=== PATIENT | female | born 1960 | race Caucasian/White ===

== ENCOUNTER 2021-11-04 14:21 | Observation (INO) | payer OTHER, MEDICAID, SELFPAY ==
[2021-11-04] VITALS (19 sets, daily range): BP systolic 116–180; BP diastolic 63–98; PULSE 81–106; RESP 16–40; TEMP 35.9–36.4; O2SAT 94–99; BMI 41.1; BMI 41.5
--- NOTE | 2021-11-04 14:33 | DI.RAD.S_ITS ---
PROCEDURE: XR CHEST 1V INDICATIONS: chest pain TECHNIQUE: One view of the chest was acquired. COMPARISON: None. FINDINGS: Surgical changes and devices: None. Lungs and pleura: Lungs are clear. No pleural effusions or pneumothorax. Mediastinum: Mediastinal contours appear normal. Heart size is normal. Bones and chest wall: No suspicious bony lesions. Overlying soft tissues appear unremarkable. IMPRESSION: No acute cardiopulmonary pathology. Dictated by: Abraham Llanos M.D. on 11/04/2021 at 15:33 Approved by: Abraham Llanos M.D. on 11/04/2021 at 15:33
[2021-11-04 15:05] LABS: Prothrombin Time 11.3 SECONDS (10.1-12.7)
[2021-11-04 15:06] LABS: Add Manual Diff / Slide Review NO; Basophils Absolute Auto 100 /uL (0-100); Basophils Percent Auto 1.1 % (0-2); Eosinophils Absolute Auto 100 /uL (0-450); Eosinophils Percent Auto 1.5 % (2-4); Hematocrit 49.7 % (36-46); Hemoglobin 16.7 g/dL (12.0-16.0); Lymphocytes Absolute Auto 2400 /uL (1100-4500); Lymphocytes Percent Auto 34.4 % (25-40); Mean Corpuscular HGB Conc 33.7 % (30-36); Mean Corpuscular Hemoglobin 29.3 PG (26-34); Mean Corpuscular Volume 86.9 fL (80-100); Monocytes Absolute Auto 500 /uL (0-900); Monocytes Percent Auto 7.6 % (3-14); Neutrophils Absolute Auto 3800 /uL (1500-7000); Neutrophils Percent Auto 55.4 % (50-75); Platelet Count 179 X10^3/uL (150-400); Red Blood Cell Count 5.72 X10^6/uL (4.0-5.2); Red Cell Distribution Width 13.7 % (11.6-14.8); White Blood Cell Count 6.9 X10^3/uL (4.5-11.0)
[2021-11-04 15:07] LABS: PTT Partial Thromboplastin Tim 31 SECONDS (26.4-36.2)
[2021-11-04 15:10] LABS: Alanine Aminotransferase 48 IU/L (<35); Albumin 4.8 g/dL (3.5-5.0); Albumin Globulin Ratio 1.5 (1.0-2.8); Alkaline Phosphatase 60 U/L (38-126); Aspartate Aminotransferase 55 IU/L (14-36); Bilirubin Total 0.7 mg/dL (0.2-1.3); Blood Urea Nitrogen 13 mg/dL (7-17); Calcium 9.9 mg/dL (8.4-10.2); Carbon Dioxide 23 mmol/L (22-32); Chloride 104 mmol/L (98-107); Creatine Kinase 54 U/L (30-135); Estimated Glomerular Filt Rate > 60.0 mL/min (>60); Globulin 3.2 g/dL (1.7-4.1); Glucose 194 mg/dL (80-110); HEMOLYSIS 27 (0-50); Lipase 260 U/L (23-300); Magnesium 1.7 mg/dL (1.6-2.3); Potassium 4.4 mmol/L (3.4-5.1); Sodium 139 mmol/L (137-145)
[2021-11-04 15:21] LABS: Troponin I < 0.012 ng/mL (0.01-0.034)
--- NOTE | 2021-11-04 15:30 | ED_ITS ---
HPI - Syncope General Chief Complaint: Syncope Stated Complaint: Falling; possible seizure, RO stroke Time Seen by Provider: 11/04/21 14:55 Source: patient Mode of arrival: Ambulatory Limitations: no limitations History of Present Illness HPI narrative: The patient presents with syncope. She has diabetes, she states she has CAD with an MO in 2019. She has intermittent episodes of syncope since the MO. over the past week she has had 3 episodes of syncope. She passed out, and awoke 1 week ago. Three days ago she has syncopal episode with her family around her. There was suggestion of a left facial droop. She continues to have slight light touch deficit her left cheek, left arm and left leg. She does have bilateral lower leg numbness due to diabetic neuropathy, the left leg numbness he is of a new nature/pattern. The facial droop has resolved. She has no history of CVA. She was seen at about walk-in clinic and referred here. She passed out at triage. She quickly recovered. She has no headache, no visual changes, and no confusion. She has no focal numbness or weakness. She has no chest pain or dyspnea. She tells me she has had intermittent episodes of palpitations since her heart attack. She has no history of arrhythmia. She has a local manager inpatient. I have no access to her local records. I discussed her situation with her manager inpatient, Dr. Bojorquez, he tells me that she had normal arteries the cardiac catheterization. 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 Chills, cough or sore throat. She denies headache. There is no apparent injury in the collapse at triage. Related Data Home Medications Medication Instructions Recorded Confirmed alprazolam 0.5 mg tablet 0.5 mg PO DAILY PRN 11/04/21 11/04/21 empagliflozin 10 mg tablet 10 mg PO DAILY 11/04/21 11/04/21 (Jardiance) lisinopril 20 mg tablet 20 mg PO DAILY 11/04/21 11/04/21 metformin 500 mg tablet 1,000 mg PO DAILY 11/04/21 11/04/21 omeprazole 20 mg capsule,delayed 20 mg PO DAILY 11/04/21 11/04/21 release rosuvastatin 10 mg tablet 10 mg PO DAILY 11/04/21 11/04/21 Review of Systems Constitutional Constitutional: Denies chills, Denies fatigue, Denies fever(s), Reports frequent falls and Denies headache(s) Eyes Eyes: Denies exophthalmos and Denies change in vision ENT Ears, Nose, Mouth, and Throat: Reports as per HPI, Denies vertigo, Denies dizziness, Denies headache(s) and Denies sore throat Cardiovascular Cardiovascular: Denies chest pain, Reports leg edema, Reports palpitations and Denies dyspnea Respiratory Respiratory: Denies chest congestion, Denies cough and Denies dyspnea Gastrointestinal Gastrointestinal: Denies abdominal pain, Denies constipation and Denies cramping Genitourinary Genitourinary: Denies dysuria Comments: No urinary complaints. Musculoskeletal Musculoskeletal: Denies arthralgias and Denies back pain Comments: Bilateral lower extremity edema. Integumentary/Breasts Skin/Breast: Denies lesions and Denies rash Neurologic Neurologic: Denies confusion, Denies vertigo, Denies dizziness, Reports frequent falls, Denies headache(s) and Denies memory loss Psychiatric Psychiatric: Denies confusion and Denies memory loss Endocrine Endocrine: Denies fatigue and Reports palpitations Patient History Medical History (Updated 11/04/21 @ 19:13 by Jacques Alexis MD) Coronary artery disease Diabetic neuropathy Fibromyalgia IDDM (insulin dependent diabetes mellitus) Myocardial infarction Syncope Social History Smoking Status: Former smoker Smoking Status: Former smoker alcohol intake frequency: holidays/special occasions only Substance Use Type: marijuana Exam Initial Vital Signs Initial Vital Signs: Vital Signs Temperature 97.5 F L 11/04/21 14:30 Pulse Rate 97 H 11/04/21 14:30 Respiratory Rate 22 11/04/21 14:30 Blood Pressure 139/75 11/04/21 14:30 Pulse Oximetry 96 11/04/21 14:30 Const General: cooperative, healthy appearing and comfortable [facility] Head: normocephalic and atraumatic Mouth: oral mucosae normal Throat: posterior oropharynx normal Eyes General: appearance normal, both eyes and all related structures Pupils: PERRL EOM: EOM intact bilaterally Neck Neck: supple, No anterior neck swelling, No lymphadenopathy and No JVD Chest Chest: normal inspection of the chest Resp Effort & Inspection: normal respiratory effort Auscultation: clear to auscultation bilaterally Cardio Rate: regular rate Rhythm: regular rhythm Heart Sounds: S1 normal, S2 normal and no murmurs GI Inspection: normal to inspection Palpation: soft and No tender Auscultation: normal bowel sounds Back/Spine/Pelvis Back: normal to inspection and No CVA tenderness Thoracic/Lumbar Spine: thoracic and lumbar spine normal to inspection Skin General: no rashes or lesions noted Neuro General: patient alert, patient oriented x3 and no focal motor deficits Cranial Nerves: CN's II-XI intact bilaterally Speech: speech normal Motor: muscle tone normal throughout Sensory Exam: other (Light touch deficit on the left face, left arm and left leg.) Other: Detailed NIHSS testing was not done, however neurologic exam does reveal decreased light touch sensation to left cheek, left arm and left leg. Findings are consistent with a recent stroke. Extrem General: full ROM, no calf tenderness and pedal edema (Bilateral.) Psych Mental Status: mental status grossly normal Course Course Course Narrative: I discussed her situation with Dr. Bojorquez. He provided important information regarding her medical history. He concurs with my thought that she should be admitted on telemetry, have an echocardiogram, every discharge with at home telemetry. This was relayed to the hospitalist, Dr. Downing. An MRI of the brain is also discussed for concerns of CVA. Orders Ordered: ED Orders 11/04/21 14:33 XR chest 1V Stat EKG-12 Lead Stat 11/04/21 14:45 Complete Blood Count AUTO DIFF Stat Comprehensive Metabolic Panel Stat D Dimer Stat Lipase Stat Magnesium Stat Partial Thromboplastin Time Stat Prothrombin Time INR Stat Troponin & CK Cardiac Panel Stat 11/04/21 15:40 COVID19 -Nasal swab/Pre-Proc Stat 11/04/21 15:49 CT head/brain wo con Stat Acetaminophen (Acetaminophen 325 Mg Tablet) 650 mg PO Q6HR PRN PRN Reason: Fever/Mild Pain (1-3) Alprazolam (Alprazolam 0.5 Mg Tablet) 0.5 mg PO DAILY PRN PRN Reason: Anxiety Atorvastatin Calcium (Atorvastatin 20 Mg Tablet) 20 mg PO BEDTIME RICARDO Bisacodyl (Bisacodyl 5 Mg Tablet) 10 mg PO DAILY PRN PRN Reason: Constipation Calcium Carbonate (Calcium Carbonate 500 Mg Tab) 1,000 mg PO Q4HR PRN PRN Reason: Dyspepsia Dextrose (Dextrose 50 % In Water 25 Gm/50 Ml Syringe) 25 gm IV PRN PRN; Protocol PRN Reason: Hypoglycemia Enoxaparin Sodium (Enoxaparin 40 Mg/0.4 Ml Syringe) 40 mg SUBCUT DAILY [facility] Lactated Ringer's (Lactated Ringers) 1,000 mls @ 80 mls/hr IV CONT [facility] Insulin Human Lispro (Insulin Lispro 100 Unit/Ml 3ml Vial) 0 unit SUBCUT ACHS RICARDO; Protocol Lisinopril (Lisinopril 20 Mg Tablet) 20 mg PO DAILY [facility] Lorazepam (Lorazepam 2 Mg/Ml Inj) 1 mg IV Q6HR PRN PRN Reason: Anxiety Naloxone HCl (Naloxone 0.4 Mg/Ml Vial) 0.2 mg IV Q2MIN PRN PRN Reason: Opiate Reversal Nf - Empagliflozin ( Jardiance) 10 Mg Tablet 10 mg PO DAILY [facility] Ondansetron HCl (Ondansetron 4 Mg/2 Ml Inj) 4 mg IV Q8HR PRN PRN Reason: Nausea And Vomiting Pantoprazole Sodium (Pantoprazole Dr 20 Mg Tablet) 20 mg PO 0600 [facility] Discontinued Medications Aspirin (Aspirin 81 Mg Chew Tab) 324 mg PO NOW ONE Stop: 11/04/21 17:13 Last Admin: 11/04/21 17:25 Dose: 324 mg Documented by: ODALYS Vital Signs Vital signs: Vital Signs - 8 hr 11/04/21 14:30 11/04/21 14:42 11/04/21 14:43 Temperature 97.5 F L Pulse Rate 97 H 89 Respiratory Rate 22 Blood Pressure 139/75 160/90 H Pulse Oximetry 96 94 97 11/04/21 15:00 11/04/21 15:01 11/04/21 15:36 Temperature Pulse Rate 94 H 89 106 H Respiratory Rate 20 34 H Blood Pressure 136/63 Pulse Oximetry 95 95 96 11/04/21 15:39 11/04/21 16:07 11/04/21 16:08 Temperature Pulse Rate 104 H 101 H 100 H Respiratory Rate 17 Blood Pressure 180/91 H 157/64 H Pulse Oximetry 97 96 96 11/04/21 16:30 Temperature Pulse Rate 92 H Respiratory Rate 16 Blood Pressure Pulse Oximetry 94 MDM - Syncope Lab Data Result diagrams: 11/04/21 14:45 11/04/21 14:45 Labs: Lab Results 11/04/21 11/04/21 11/04/21 Range/Units 14:45 14:45 14:45 WBC 6.9 (4.5-11.0) X10^3/uL RBC 5.72 H (4.0-5.2) X10^6/uL Hgb 16.7 H (12.0-16.0) g/dL Hct 49.7 H (36-46) % MCV 86.9 (80-100) fL MCH 29.3 (26-34) PG MCHC 33.7 (30-36) % RDW 13.7 (11.6-14.8) % Plt Count 179 (150-400) X10^3/uL Neut % (Auto) 55.4 (50-75) % Lymph % (Auto) 34.4 (25-40) % [place] % (Auto) 7.6 (3-14) % Eos % (Auto) 1.5 L (2-4) % Baso % (Auto) 1.1 (0-2) % Neut # (Auto) 3800 (7966-2637) /uL Lymph # (Auto) 2400 (9809-5656) /uL [place] # (Auto) 500 (0-900) /uL Eos # (Auto) 100 (0-450) /uL Baso # (Auto) 100 (0-100) /uL PT 11.3 (10.1-12.7) SECONDS INR 1.0 (0.9-1.3) APTT 31 (26.4-36.2) SECONDS D-Dimer (<230) ng/mL Sodium 139 (137-145) mmol/L Potassium 4.4 (3.4-5.1) mmol/L Chloride 104 (98-107) mmol/L Carbon Dioxide 23 (22-32) mmol/L BUN 13 (7-17) mg/dL Creatinine 0.62 (0.52-1.04) mg/dL Estimated GFR > 60.0 (>60) mL/min BUN/Creatinine Ratio 21.0 (6-22) Glucose 194 H (80-110) mg/dL Calcium 9.9 (8.4-10.2) mg/dL Magnesium 1.7 (1.6-2.3) mg/dL Total Bilirubin 0.7 (0.2-1.3) mg/dL AST 55 H (14-36) IU/L ALT 48 H (<35) IU/L Alkaline Phosphatase 60 (38-126) U/L Total Creatine Kinase 54 (30-135) U/L CK-MB (CK-2) TNP CK-MB (CK-2) Rel Index TNP Troponin I < 0.012 (0.01-0.034) ng/mL Total Protein 8.0 (6.3-8.2) g/dL Albumin 4.8 (3.5-5.0) g/dL Globulin 3.2 (1.7-4.1) g/dL Albumin/Globulin Ratio 1.5 (1.0-2.8) Triglycerides (35-150) mg/dL Cholesterol (140-199) mg/dL LDL Cholesterol, Calc (<100) mg/dL HDL Cholesterol (40-60) mg/dL Lipase 260 (23-300) U/L Vitamin B12 (239-931) pg/mL TSH (0.47-4.68) uIU/mL SARS-CoV-2 (PCR) (Negative) 11/04/21 11/04/21 11/04/21 Range/Units 14:45 14:45 14:45 WBC (4.5-11.0) X10^3/uL RBC (4.0-5.2) X10^6/uL Hgb (12.0-16.0) g/dL Hct (36-46) % MCV (80-100) fL MCH (26-34) PG MCHC (30-36) % RDW (11.6-14.8) % Plt Count (150-400) X10^3/uL Neut % (Auto) (50-75) % Lymph % (Auto) (25-40) % [place] % (Auto) (3-14) % Eos % (Auto) (2-4) % Baso % (Auto) (0-2) % Neut # (Auto) (4986-3177) /uL Lymph # (Auto) (0920-4251) /uL [place] # (Auto) (0-900) /uL Eos # (Auto) (0-450) /uL Baso # (Auto) (0-100) /uL PT (10.1-12.7) SECONDS INR (0.9-1.3) APTT (26.4-36.2) SECONDS D-Dimer < 200 (<230) ng/mL Sodium (137-145) mmol/L Potassium (3.4-5.1) mmol/L Chloride (98-107) mmol/L Carbon Dioxide (22-32) mmol/L BUN (7-17) mg/dL Creatinine (0.52-1.04) mg/dL Estimated GFR (>60) mL/min BUN/Creatinine Ratio (6-22) Glucose (80-110) mg/dL Calcium (8.4-10.2) mg/dL Magnesium (1.6-2.3) mg/dL Total Bilirubin (0.2-1.3) mg/dL AST (14-36) IU/L ALT (<35) IU/L Alkaline Phosphatase (38-126) U/L Total Creatine Kinase (30-135) U/L CK-MB (CK-2) CK-MB (CK-2) Rel Index Troponin I (0.01-0.034) ng/mL Total Protein (6.3-8.2) g/dL Albumin (3.5-5.0) g/dL Globulin (1.7-4.1) g/dL Albumin/Globulin Ratio (1.0-2.8) Triglycerides 255 H (35-150) mg/dL Cholesterol 119 L (140-199) mg/dL LDL Cholesterol, Calc 19 (<100) mg/dL HDL Cholesterol 49 (40-60) mg/dL Lipase (23-300) U/L Vitamin B12 641 (239-931) pg/mL TSH 2.27 (0.47-4.68) uIU/mL SARS-CoV-2 (PCR) (Negative) 11/04/21 Range/Units 15:40 WBC (4.5-11.0) X10^3/uL RBC (4.0-5.2) X10^6/uL Hgb (12.0-16.0) g/dL Hct (36-46) % MCV (80-100) fL MCH (26-34) PG MCHC (30-36) % RDW (11.6-14.8) % Plt Count (150-400) X10^3/uL Neut % (Auto) (50-75) % Lymph % (Auto) (25-40) % [place] % (Auto) (3-14) % Eos % (Auto) (2-4) % Baso % (Auto) (0-2) % Neut # (Auto) (7324-3072) /uL Lymph # (Auto) (3003-3409) /uL [place] # (Auto) (0-900) /uL Eos # (Auto) (0-450) /uL Baso # (Auto) (0-100) /uL PT (10.1-12.7) SECONDS INR (0.9-1.3) APTT (26.4-36.2) SECONDS D-Dimer (<230) ng/mL Sodium (137-145) mmol/L Potassium (3.4-5.1) mmol/L Chloride (98-107) mmol/L Carbon Dioxide (22-32) mmol/L BUN (7-17) mg/dL Creatinine (0.52-1.04) mg/dL Estimated GFR (>60) mL/min BUN/Creatinine Ratio (6-22) Glucose (80-110) mg/dL Calcium (8.4-10.2) mg/dL Magnesium (1.6-2.3) mg/dL Total Bilirubin (0.2-1.3) mg/dL AST (14-36) IU/L ALT (<35) IU/L Alkaline Phosphatase (38-126) U/L Total Creatine Kinase (30-135) U/L CK-MB (CK-2) CK-MB (CK-2) Rel Index Troponin I (0.01-0.034) ng/mL Total Protein (6.3-8.2) g/dL Albumin (3.5-5.0) g/dL Globulin (1.7-4.1) g/dL Albumin/Globulin Ratio (1.0-2.8) Triglycerides (35-150) mg/dL Cholesterol (140-199) mg/dL LDL Cholesterol, Calc (<100) mg/dL HDL Cholesterol (40-60) mg/dL Lipase (23-300) U/L Vitamin B12 (239-931) pg/mL TSH (0.47-4.68) uIU/mL SARS-CoV-2 (PCR) Negative (Negative) Point of Care Testing Glucose POC 183 Imaging Data Chest x-ray: Radiologist's Impression: No acute findings CT scan - head: Radiologist's Impression: No acute findings ECG Data Attestation: I personally reviewed and interpreted this ECG as follows: (Normal sinus rhythm rate 93 beats per minute. LAD. Left axis deviation. No ectopy. No acute ST T wave changes.) Critical Care Time Critical Care Time Critical Care Time: Yes Total Critical Care Time: 50 Attestation: Time included evaluation of patient, review of EKG, radiology and lab data, and discussing the situation with the patient. Time included consultation with the physicians as noted above. Discharge Plan Departure Patient Disposition: Admitted as Observation Clinical Impression: Syncope, IDDM (insulin dependent diabetes mellitus), CVA (cerebral vascular accident) Admit Date/Time: 11/04/21 16:57 Admit Provider: Artie Ochoa
--- NOTE | 2021-11-04 15:49 | DI.CT.S_ITS ---
PROCEDURE: CT HEAD/BRAIN WO CON INDICATIONS: Syncope. Suspect recent CVA. TECHNIQUE: Noncontrast 4.5 mm thick angled axial sections acquired from the foramen magnum to the vertex, with coronal and sagittal reformats. For radiation dose reduction, the following was used: automated exposure control, adjustment of mA and/or kV according to patient size. COMPARISON: None. FINDINGS: Image quality: Excellent. CSF spaces: Basal cisterns are patent. No extra-axial fluid collections. Ventricles are normal in size and shape. Brain: No midline shift. No intracranial masses or hemorrhage. Silver-white matter interface is normal. Skull and face: Calvarium and visualized facial bones are intact, without suspicious lesions. Sinuses: Visualized sinuses and mastoids are clear. IMPRESSION: Unremarkable CT of the brain Approved by: Elias Meyer M.D. on 11/04/2021 at 15:10
[2021-11-04 15:56] LABS: D Dimer < 200 ng/mL (<230)
[2021-11-04 16:04] LABS: COVID19 -Nasal RAPID Negative (Negative)
--- NOTE | 2021-11-04 17:06 | DI.ECHO.S_ITS ---
[facility]---------+ [facility] +---------+ : : [address] : : : : [id number] : : : : Phone: [phone] Echocardiogram Report + :Name: SHERLY CH Study Date: 11/05/2021 Height: 65 in : :[facility] ReadingLocation: Weight: 243 lb : : Gender: Female BSA: 2.1 m2 : :: 1960 Age: 61 yrs BP: 128/73 mmHg: :Reason For Study: Syncope, stroke-like symptoms : :Ordering Physician: SARANYA, : :HARI Performed By: Thang Sellers : :Referring: HARI BEAVER : + Interpretation Summary The left ventricle is normal in size and wall thickness. The ejection fraction is estimated to be 60-65%. LVEF has not changed since prior study. There are no obvious focal wall motion abnormalities noted but poor endocardial definition reduces the sensitivity for the detection of such. Diastolic parameters suggest a relaxation abnormality of the left ventricle, consistent with probable normal filling pressures. The right ventricle is grossly normal size. The right ventricle is not well visualized. The right ventricular systolic function is normal. Pulmonary artery pressures cannot be estimated because of the lack of a measurable TR jet velocity. The left atrial size is normal. Right atrium not well visualized. The right atrium is borderline dilated. Bubble study with Valsalva on slides 73 and 74. No obvious sign of shunting There is no significant valvular heart disease. The aortic root is normal size. Procedure: A two-dimensional transthoracic echocardiogram with color flow and Doppler was performed. Comparison is made with the echocardiogram of 02/13/2019. Image quality fair but aquisition technically difficult due to patient's body habitus and inability to tolerate exam, especially apical and subcostal windows. The patient was in normal sinus rhythm during the exam. Left Ventricle: The left ventricle is normal in size and wall thickness. The ejection fraction is estimated to be 60-65%. There are no obvious focal wall motion abnormalities noted but poor endocardial definition reduces the sensitivity for the detection of such. Diastolic parameters suggest a relaxation abnormality of the left ventricle, consistent with probable normal filling pressures. Right Ventricle: The right ventricle is grossly normal size. The right ventricle is not well visualized. The right ventricular systolic function is normal. Atria: The left atrial size is normal. Right atrium not well visualized. The right atrium is borderline dilated. Bubble study with Valsalva on slides 73 and 74. No obvious sign of shunting. Mitral Valve: The mitral valve is normal. There is no mitral regurgitation noted. Aortic Valve: The aortic valve is trileaflet. The aortic valve opens well. No aortic regurgitation is present. Tricuspid Valve: The tricuspid valve is normal. There is trace tricuspid regurgitation. Pulmonary artery pressures cannot be estimated because of the lack of a measurable TR jet velocity. Pulmonic Valve: The pulmonic valve is normal in structure and function. There is no significant valvular heart disease. Great Vessels: The aortic root is normal size. The ascending aorta is normal in size. The aortic arch is normal in size. The inferior vena cava was not well visualized. Pericardium/ Pleura There is no pericardial effusion. There is an anterior echo-free space consistent with a fat pad. There is no pleural effusion. MMode/2D Measurements & Calculations LVIDd: 3.7 cm LVOT diam: 1.9 cm LVIDs: 2.6 cm Ao root diam: 3.0 cm FS: 31.5 % asc Aorta Diam: 3.0 cm IVSd: 0.72 cm Ao Arch Diam (Prox Trans): 2.8 cm LVPWd: 1.1 cm LV young. diameter/BSA (cm/m^2): 1.7 LV sys. diameter/BSA (cm/m^2): 1.2 LA A2 area: 16.6 cm2 RA long axis: 4.5 cm LA A4 area: 16.3 cm2 RA area: 16.6 cm2 LA length (vol): 4.8 cm RA vol: 52.3 ml LA vol: 47.5 ml RA : 24.3 ml/m2 LA vol index: 22.1 ml/m2 TAPSE: 2.4 cm Doppler Measurements & Calculations Ao V2 max: 131.4 cm/sec LVOT Max Patrick: 111.9 cm/sec Ao V2 mean: 85.0 cm/sec LV V1 max P.0 mmHg Ao max P.9 mmHg LV V1 VTI: 21.2 cm Ao mean P.2 mmHg MG(I,D): 2.4 cm2 Ao V2 VTI: 25.1 cm MG(V,D): 2.4 cm2 sev ratio: 0.85 MG indexed to BSA (cm^2/m^2): 1.1 MV E max patrick: 56.0 cm/sec PA V2 max: 84.2 cm/sec MV A max patrick: 66.0 cm/sec PA V2 mean: 68.2 cm/sec MV E/A: 0.85 PA mean P.9 mmHg Med Peak E' Patirck: 8.3 cm/sec PA pr(Accel): 34.5 mmHg E/E' med: 6.7 Lat Peak E' Patrick: 8.5 cm/sec E/E' lat: 6.6 E/e' average: 6.6 MV dec time: 0.22 sec SV(LVOT): 59.4 ml Reading Physician:02:59 PM
--- NOTE | 2021-11-04 17:08 | DI.MRI.S_ITS ---
PROCEDURE: MR HEAD/BRAIN WO CON INDICATIONS: WEAKNESS TO EXT; NUMBNESS TECHNIQUE: After completing the axial diffusion sequence, the patient was unable to continue due to claustrophobia, and the exam was terminated. COMPARISON: None. FINDINGS: Single diffusion sequence of the brain shows no evidence of infarct or gross mass lesion. IMPRESSION: Limited single sequence of the brain shows no evidence of acute infarct or large mass lesion. Consider follow-up MRI brain with oral sedation Approved by: Elias Meyer M.D. on 11/04/2021 at 17:15
--- NOTE | 2021-11-04 17:24 | PM.HP.1 ---
History of Present Illness History of Present Illness Chief complaint: Falling; possible seizure, RO stroke Narrative: THIS IS A 62-YEAR-OLD FEMALE WITH REPORTEDLY HISTORY OF PRIOR AL WHICH WAS SUPPOSEDLY DIAGNOSED IN 2019. HOWEVER PATIENT HAD A LEFT HEART CATHETERIZATION WHICH SHOWING CLEAN CORONARY REPORTEDLY. PATIENT PRESENTS TO THE HOSPITAL REPORTING THAT SHE HAS BEEN HAVING RECURRENT SYNCOPAL EPISODE. WITH THE LAST REPORTED BEING DURING TRIAGED TODAY. FOR THE LAST 2-3 WEEKS AGO, SHE REPORTED TO 2- 3 EPISODE OR SYNCOPE. SHE ALSO REPORTED CHEST PALPITATION WITH HER HEART A BEAT SHE IS A POOR HISTORIAN AND REPORTED MULTIPLE UNRELATED SYMPTOMS . PATIENT ALSO ENDORSES THAT SHE HAS BEEN HAVING SOME NUMBNESS TO LOWER EXTREMITIES WHICH SHE HAS DIFFERENT FROM HER USUAL DIABETIC NEUROPATHY. HER RIGHT SIDE BEING THE WORST IN THE ER HOWEVER HER VITAL SIGNS ARE FAIRLY STABLE. LABS IS SIGNIFICANT FOR APPEARS TO BE MILD HEMOCONCENTRATION SECONDARY TO INTRAVASCULAR FLUID DEPLETION WELL ELEVATED LIVER ENZYMES. A CT OF THE BRAIN WAS NEGATIVE A CHEST X-RAY NOT SHOW ANY ACUTE DISEASE. Patient History Medical History (Updated 11/04/21 @ 15:58 by Jacques Alexis MD) Coronary artery disease Diabetic neuropathy Fibromyalgia IDDM (insulin dependent diabetes mellitus) Myocardial infarction Syncope Family & Social History Safety & Behavioral: Feels Safe in Current Yes Environment Tobacco & Substance use: Smoking Status Former smoker alcohol intake frequency holiday/special occasion Substance Use Type marijuana Meds Home Medications and Allergies Home Medications Medication Instructions Recorded Confirmed Type alprazolam 0.5 mg tablet 0.5 mg PO DAILY PRN 11/04/21 11/04/21 History empagliflozin 10 mg tablet 10 mg PO DAILY 11/04/21 11/04/21 History (Jardiance) lisinopril 20 mg tablet 20 mg PO DAILY 11/04/21 11/04/21 History metformin 500 mg tablet 1,000 mg PO DAILY 11/04/21 11/04/21 History omeprazole 20 mg capsule,delayed 20 mg PO DAILY 11/04/21 11/04/21 History release rosuvastatin 10 mg tablet 10 mg PO DAILY 11/04/21 11/04/21 History Review of Systems Review of Systems Narrative: NEGATIVE UNLESS NOTED ABOVE IN HPI Exam Vital Signs (past 8 hours): - 11/04/21 14:30 11/04/21 14:42 11/04/21 14:43 Temperature 97.5 F L Pulse Rate 97 H 89 Respiratory Rate 22 Blood Pressure 139/75 160/90 H Pulse Oximetry 96 94 97 11/04/21 15:00 11/04/21 15:01 11/04/21 15:36 Temperature Pulse Rate 94 H 89 106 H Respiratory Rate 20 34 H Blood Pressure 136/63 Pulse Oximetry 95 95 96 11/04/21 15:39 11/04/21 16:07 11/04/21 16:08 Temperature Pulse Rate 104 H 101 H 100 H Respiratory Rate 17 Blood Pressure 180/91 H 157/64 H Pulse Oximetry 97 96 96 11/04/21 16:30 Temperature Pulse Rate 92 H Respiratory Rate 16 Blood Pressure Pulse Oximetry 94 Oxygen Delivery Method Room Air Narrative Exam Narrative: NO ACUTE DISTRESS. MORBIDLY OBESE VITAL SIGNS STABLE HEAD ATRAUMATIC NORMOCEPHALIC NECK : SUPPLE WITHOUT ADENOPATHY NO CAROTID BRUITS EYE: EOMI, PERRLA, NORMAL CONJUNCTIVA; NO JAUNDICE CHEST: REGULAR RATE. NO RUBS. PMI IS NON DISPLACED. NO MURMURS; NORMAL S1-S2 PULMONARY: DECREASED BS OVER THE BASES. MILD BIBASILAR CRACKLES NOTED; NO INCREASED DULLNESS TO PERCUSSION ABDOMEN: OBESE BUT SOFT. NONTENDER. NONDISTENDED. BOWEL SOUNDS ARE PRESENT IN ALL 4 QUADRANTS. NO MASS. EXTREMITIES: NO EDEMA.. NO CYANOSIS CLUBBING NOTED. NEURO: CRANIAL NERVES 2-12 GROSSLY INTACT. NO FOCAL NEUROLOGICAL DEFICIT NOTED. MSK: NORMAL RANGE OF MOTION FOR AGE. NO JOINT EFFUSION. SKIN: NORMAL FOR ETHNICITY; NO ECCHYMOSIS. NO LESION. GOOD TURGOR.; NO RASHES : NORMAL EXTERNAL GENITALIA. PSYCH : APPROPRIATE MOOD AND AFFECT. ALERT AWAKE ORIENTED X3 Objective Labs Result Diagrams: 11/04/21 14:45 11/04/21 14:45 Labs: Laboratory Results - last 24 hr 11/04/21 11/04/21 11/04/21 14:45 14:45 14:45 WBC 6.9 RBC 5.72 H Hgb 16.7 H Hct 49.7 H MCV 86.9 MCH 29.3 MCHC 33.7 RDW 13.7 Plt Count 179 Neut % (Auto) 55.4 Lymph % (Auto) 34.4 [place] % (Auto) 7.6 Eos % (Auto) 1.5 L Baso % (Auto) 1.1 Neut # (Auto) 3800 Lymph # (Auto) 2400 [place] # (Auto) 500 Eos # (Auto) 100 Baso # (Auto) 100 PT 11.3 INR 1.0 APTT 31 D-Dimer Sodium 139 Potassium 4.4 Chloride 104 Carbon Dioxide 23 BUN 13 Creatinine 0.62 Estimated GFR > 60.0 BUN/Creatinine Ratio 21.0 Glucose 194 H Calcium 9.9 Magnesium 1.7 Total Bilirubin 0.7 AST 55 H ALT 48 H Alkaline Phosphatase 60 Total Creatine Kinase 54 CK-MB (CK-2) TNP CK-MB (CK-2) Rel Index TNP Troponin I < 0.012 Total Protein 8.0 Albumin 4.8 Globulin 3.2 Albumin/Globulin Ratio 1.5 Lipase 260 SARS-CoV-2 (PCR) 11/04/21 11/04/21 14:45 15:40 WBC RBC Hgb Hct MCV MCH MCHC RDW Plt Count Neut % (Auto) Lymph % (Auto) [place] % (Auto) Eos % (Auto) Baso % (Auto) Neut # (Auto) Lymph # (Auto) [place] # (Auto) Eos # (Auto) Baso # (Auto) PT INR APTT D-Dimer < 200 Sodium Potassium Chloride Carbon Dioxide BUN Creatinine Estimated GFR BUN/Creatinine Ratio Glucose Calcium Magnesium Total Bilirubin AST ALT Alkaline Phosphatase Total Creatine Kinase CK-MB (CK-2) CK-MB (CK-2) Rel Index Troponin I Total Protein Albumin Globulin Albumin/Globulin Ratio Lipase SARS-CoV-2 (PCR) Negative Assessment & Plan Assessment & Plan narrative: PROBLEM LIST POSSIBLE SYNCOPE. CAUSE IS UNCLEAR POSSIBLE INTRAVASCULAR FLUID DEPLETION /DEHYDRATION DIABETES TYPE 2 MORBID OBESITY POSSIBLE ANXIETY FOR HISTORY ELEVATED LIVER ENZYMES. PATIENT IS ON STATIN LOWER EXTREMITY WEAKNESS. CAUSE IS UNCLEAR PLAN CHECK MRI BRAIN AND CERVICAL SPINE WILL ALSO CHECK LIPIDS RPR AND HOMOCYSTINE WILL CHECK AN ECHOCARDIOGRAM WELL CHECK VITAMIN B12 LEVEL WILL ORDER URINE DRUG SCREEN CHECK TSH Q.4 HOURS NEURO CHECK WILL BE ORDERED WELL FOR THE NEXT 24 HOURS PATIENT WILL BE EVALUATED BY PHYSICAL THERAPY AND OCCUPATIONAL THERAPY TEAMS WHILE IN-HOUSE ADDITIONAL MANAGEMENT AND DISCHARGE PER CLINICAL COURSE PER CLINICAL COURSE Time Spent With Patient Critical Care time: I spent a total of [] minutes of critical care time on this patient's care today; this time is exclusive of procedural time.
[2021-11-04] MEDS: ASPIRIN 81 MG CHEW TAB 324 MG PO (17:25)
[2021-11-04 17:50] LABS: Cholesterol 119 mg/dL (140-199); HDL Cholesterol 49 mg/dL (40-60); LDL Cholesterol Calculated 19 mg/dL (<100); Triglycerides 255 mg/dL (35-150)
[2021-11-04 18:21] LABS: TSH w/ Reflex to FT4 2.27 uIU/mL (0.47-4.68)
[2021-11-04 18:25] LABS: COVID19 - ADMIT (NP swab/PCR) Negative (Negative)
[2021-11-04 18:40] LABS: Vitamin B12 641 pg/mL (239-931)
[2021-11-04 19:54] LABS: Hemoglobin A1C% w Est Avg Glu 8.9 % (4.0-6.0)
[2021-11-04] MEDS: LACTATED RINGERS 1,000 ML 80 ML IV (20:14)
[2021-11-04] MEDS: ATORVASTATIN 20 MG TABLET PO (20:26)
[2021-11-04 20:35] LABS: Appearance Urine UA CLEAR; Bilirubin Urine UA NEGATIVE (NEGATIVE); Color Urine UA YELLOW; Glucose Urine UA 2+ g/dL (Negative); Ketones Urine UA 1+ (NEGATIVE); Leukocyte Esterase Urine UA NEGATIVE (NEGATIVE); Nitrite Urine UA NEGATIVE (Negative); Occult Blood Urine UA NEGATIVE (Negative); Protein Urine UA NEGATIVE (Negative); Urobilinogen Urine UA 0.2 E.U./dL (0.2)
[2021-11-04 20:41] LABS: Bacteria Urine None Seen; Culture Indicated Urine Cult Not Indicated; RBC Urine None Seen (0-5/HPF); Squamous Epithelial Cell Urine 5-10 /HPF (0-5/HPF); WBC Urine None Seen (0-5/HPF)
[2021-11-04 20:42] LABS: UR Morphine/Opiate cutoff 300 Negative (Negative); Ur Creatinine Normal (Normal); Ur Specific Gravity Normal (Normal); Urine Amphetamines Negative (Negative); Urine Barbiturates Negative (Negative); Urine Benzodiazepines Negative (Negative); Urine Cocaine Negative (Negative); Urine MDMA Negative (Negative); Urine Methadone Negative (Negative); Urine Methamphetamines Negative (Negative); Urine Oxycodone Negative (Negative); Urine Phencyclidine Negative (Negative); Urine Tetrahydrocannabinol Positive (Negative); Urine Tricyclic Antidepressant Negative (Negative); Urine pH Normal (Normal); pH Urine UA 5.5 (4.5-8.0)
[2021-11-04] MEDS: LORazepam 2 MG/ML INJ 1 MG IV (21:02)
[2021-11-04 21:03] LABS: Creatine Kinase 50 U/L (30-135)
[2021-11-04 21:09] LABS: Alanine Aminotransferase 47 IU/L (<35); Albumin 4.5 g/dL (3.5-5.0); Albumin Globulin Ratio 1.5 (1.0-2.8); Alkaline Phosphatase 56 U/L (38-126); Aspartate Aminotransferase 71 IU/L (14-36); BUN Creatinine Ratio 23.1 (6-22); Bilirubin Total 0.4 mg/dL (0.2-1.3); Blood Urea Nitrogen 15 mg/dL (7-17); Calcium 9.8 mg/dL (8.4-10.2); Carbon Dioxide 28 mmol/L (22-32); Chloride 104 mmol/L (98-107); Estimated Glomerular Filt Rate > 60.0 mL/min (>60); Glucose 160 mg/dL (80-110); HEMOLYSIS 29 (0-50); Potassium 4.2 mmol/L (3.4-5.1); Sodium 139 mmol/L (137-145); Total Protein 7.5 g/dL (6.3-8.2)
[2021-11-04 21:16] LABS: Troponin I < 0.012 ng/mL (0.01-0.034)
--- NOTE | 2021-11-04 21:49 | PC.ADMIT ---
Patient arrived to room 206 at shift change from ER per stretcher. Up to bathroom with 1 assist and then into bed. Is alert and oriented. Does state she is still feeling slightly dizzy. NIH = 4. Had slight left facial droop, and has chronic neuropathy in left arm/leg but states feels more numb than normal. Has difficulty making hand grasps due to osteoarthritis and has difficulty holding onto objects with left hand. Drift present in both left extremities. Breath sounds CTA with RA sat of 94%. HRR w/telemetry reading of SR w/BBB. Denied nausea. BT present and abdomen is soft. Denied dysuria, frequency or urgency with urination. Is able to move self in bed. Bilateral calf SCD's applied but requested the left one be removed as is exacerbating her neuropathy. Fall risk score is high and bed alarm is activated. During admission delonte complained to RNAbhijit, that she was having 8/10 left sided chest pain radiating into left arm. Described pain as heavy and burning. BP 162/98 with HR of 95 and tachypneic at 40. Placed on oxygen for comfort with sat of 99% on 2L/min per NC. Not diaphoretic. Chas IGNACIO, informed and orders received for EKG, lab work, NTG and Morphine but directed to first give dose of Ativan and if that didn't resolve the discomfort to proceed to giving NTG. After EKG was completed patient stated pain had subsided to 6/10 and after Ativan was given pain subsided to 4/10. BP at that time was 125/86 with HR of 82 and RR of 22. CBG checked and was 148. Patient appears to be asleep at this time. [address] Admission Note: The patient,Gabrielle Avilez,61 y/o, was given written information regarding hospital policies, unit procedures and contact persons. Patient's smoking status: Former smoker. Vital Signs - 8 hr 11/04/21 14:30 11/04/21 14:42 11/04/21 14:43 Temperature 97.5 F L Pulse Rate 97 H 89 Respiratory Rate 22 Blood Pressure 139/75 160/90 H Pulse Oximetry 96 94 97 11/04/21 15:00 11/04/21 15:01 11/04/21 15:36 Temperature Pulse Rate 94 H 89 106 H Respiratory Rate 20 34 H Blood Pressure 136/63 Pulse Oximetry 95 95 96 11/04/21 15:39 11/04/21 16:07 11/04/21 16:08 Temperature Pulse Rate 104 H 101 H 100 H Respiratory Rate 17 Blood Pressure 180/91 H 157/64 H Pulse Oximetry 97 96 96 11/04/21 16:30 11/04/21 17:00 11/04/21 17:16 Temperature Pulse Rate 92 H 96 H 87 Respiratory Rate 16 18 Blood Pressure 129/75 Pulse Oximetry 94 96 96 11/04/21 17:20 11/04/21 18:00 11/04/21 19:00 Temperature 97.6 F Pulse Rate 88 90 81 Respiratory Rate 18 20 Blood Pressure 116/63 118/70 128/73 Pulse Oximetry 95 96 94 11/04/21 20:50 11/04/21 21:00 11/04/21 21:12 Temperature Pulse Rate 95 H 82 Respiratory Rate 40 H 22 Blood Pressure 162/98 H 125/86 Pulse Oximetry 99 97
[2021-11-04 22:48] LABS: Troponin I < 0.012 ng/mL (0.01-0.034)
[2021-11-05 03:55] VITALS: BP 120/85; PULSE 69; RESP 18; TEMP 36; O2SAT 94
[2021-11-05] MEDS: LORazepam 2 MG/ML INJ 1 MG IV ×2 (04:43→11:47)
[2021-11-05] MEDS: PANTOPRAZOLE DR 20 MG TABLET PO (06:14)
[2021-11-05 06:58] LABS: Add Manual Diff / Slide Review NO; Basophils Absolute Auto 100 /uL (0-100); Basophils Percent Auto 1.2 % (0-2); Eosinophils Absolute Auto 100 /uL (0-450); Eosinophils Percent Auto 2.4 % (2-4); Hematocrit 43.4 % (36-46); Hemoglobin 14.6 g/dL (12.0-16.0); Lymphocytes Absolute Auto 2000 /uL (1100-4500); Lymphocytes Percent Auto 42.7 % (25-40); Mean Corpuscular HGB Conc 33.7 % (30-36); Mean Corpuscular Hemoglobin 29.2 PG (26-34); Mean Corpuscular Volume 86.7 fL (80-100); Monocytes Absolute Auto 400 /uL (0-900); Neutrophils Absolute Auto 2200 /uL (1500-7000); Neutrophils Percent Auto 45.7 % (50-75); Platelet Count 145 X10^3/uL (150-400); Red Blood Cell Count 5.01 X10^6/uL (4.0-5.2); Red Cell Distribution Width 13.8 % (11.6-14.8); White Blood Cell Count 4.8 X10^3/uL (4.5-11.0)
[2021-11-05 07:10] LABS: Alanine Aminotransferase 39 IU/L (<35); Albumin Globulin Ratio 1.6 (1.0-2.8); Alkaline Phosphatase 46 U/L (38-126); Aspartate Aminotransferase 40 IU/L (14-36); BUN Creatinine Ratio 21.9 (6-22); Bilirubin Total 0.5 mg/dL (0.2-1.3); Blood Urea Nitrogen 14 mg/dL (7-17); Calcium 9.1 mg/dL (8.4-10.2); Carbon Dioxide 30 mmol/L (22-32); Chloride 100 mmol/L (98-107); Estimated Glomerular Filt Rate > 60.0 mL/min (>60); Globulin 2.5 g/dL (1.7-4.1); Glucose 208 mg/dL (80-110); HEMOLYSIS < 15 (0-50); Sodium 137 mmol/L (137-145); Total Protein 6.5 g/dL (6.3-8.2)
[2021-11-05 07:20] LABS: Troponin I < 0.012 ng/mL (0.01-0.034)
--- NOTE | 2021-11-05 07:36 | PM.PN.1 ---
Subjective Subjective Date Patient Seen: 11/05/21 Interval history: She is seen in her room here today to follow-up her possible new seizure condition with syncope/lightheadedness. During today's physical therapy session while her orthostatic numbers were being checked she became aware that she was feeling fainter and so asked to sit down and then promptly passed out for several seconds. When she woke up again she was quite distraught and crying. She did not lose control of her bowels or bladder and she was not postictal. There were no observed seizures. I was present at the and of this process. She has undergone a stroke protocol MRI without any significant abnormality found. An echocardiogram has also been done with results pending. She tells me her symptoms in a very disorganized story fashion. She says she feels exhausted today. Her is sleeping on the bench in the room. She says she wants to go home today. Telemetry during this episode did not show any irregularity. Exam Vital Signs (past 8 hours): - 11/04/21 23:56 11/05/21 03:55 Temperature 96.7 F L 96.8 F L Pulse Rate 86 69 Respiratory Rate 18 18 Blood Pressure 123/82 120/85 Pulse Oximetry 95 94 Oxygen Delivery Method Nasal Cannula Oxygen Flow Rate 0 Narrative Exam Narrative: She is alert and oriented x3. She is distraught and distress. She tells her story in a disorganized fashion. Heart is regular rate and rhythm without murmur Lungs are clear to auscultation bilaterally Extremities have no ankle edema Neurological exam: Left foot movement is 2/5 and right foot movement is 5/5. She has weak pharmaceutical plant operator strength bilateral. She has diminished sensation on the left side of her face. Objective Labs Result Diagrams: 11/05/21 06:25 11/05/21 06:25 Labs: Laboratory Results - last 24 hr 11/04/21 11/04/21 11/04/21 14:45 14:45 14:45 WBC 6.9 RBC 5.72 H Hgb 16.7 H Hct 49.7 H MCV 86.9 MCH 29.3 MCHC 33.7 RDW 13.7 Plt Count 179 Neut % (Auto) 55.4 Lymph % (Auto) 34.4 [place] % (Auto) 7.6 Eos % (Auto) 1.5 L Baso % (Auto) 1.1 Neut # (Auto) 3800 Lymph # (Auto) 2400 [place] # (Auto) 500 Eos # (Auto) 100 Baso # (Auto) 100 PT 11.3 INR 1.0 APTT 31 D-Dimer Sodium 139 Potassium 4.4 Chloride 104 Carbon Dioxide 23 BUN 13 Creatinine 0.62 Estimated GFR > 60.0 BUN/Creatinine Ratio 21.0 Glucose 194 H Hemoglobin A1c Calcium 9.9 Phosphorus Magnesium 1.7 Total Bilirubin 0.7 AST 55 H ALT 48 H Alkaline Phosphatase 60 Total Creatine Kinase 54 CK-MB (CK-2) TNP CK-MB (CK-2) Rel Index TNP Troponin I < 0.012 Total Protein 8.0 Albumin 4.8 Globulin 3.2 Albumin/Globulin Ratio 1.5 Triglycerides Cholesterol LDL Cholesterol, Calc HDL Cholesterol Lipase 260 Vitamin B12 TSH Urine Color Urine Appearance Urine pH Ur Specific [place] Urine Protein Urine Glucose (UA) Urine Ketones Urine Occult Blood Urine Nitrate Urine Bilirubin Urine Urobilinogen Ur Leukocyte Esterase Urine RBC Urine WBC Ur Squamous Epith Cells Urine Bacteria Ur Culture Indicated? U Opiates 300ng/mL cut Ur Oxycodone Screen Urine Methadone Screen Ur Barbiturates Screen U Tricyclic Antidepress Ur Phencyclidine Scrn Ur Amphetamines Screen U Methamphetamines Scrn Ur MDMA Scrn (Ecstasy) U Benzodiazepines Scrn Urine Cocaine Screen U Marijuana (THC) Screen SARS-CoV-2 (PCR) 11/04/21 11/04/21 11/04/21 14:45 14:45 14:45 WBC RBC Hgb Hct MCV MCH MCHC RDW Plt Count Neut % (Auto) Lymph % (Auto) [place] % (Auto) Eos % (Auto) Baso % (Auto) Neut # (Auto) Lymph # (Auto) [place] # (Auto) Eos # (Auto) Baso # (Auto) PT INR APTT D-Dimer < 200 Sodium Potassium Chloride Carbon Dioxide BUN Creatinine Estimated GFR BUN/Creatinine Ratio Glucose Hemoglobin A1c Calcium Phosphorus Magnesium Total Bilirubin AST ALT Alkaline Phosphatase Total Creatine Kinase CK-MB (CK-2) CK-MB (CK-2) Rel Index Troponin I Total Protein Albumin Globulin Albumin/Globulin Ratio Triglycerides 255 H Cholesterol 119 L LDL Cholesterol, Calc 19 HDL Cholesterol 49 Lipase Vitamin B12 641 TSH 2.27 Urine Color Urine Appearance Urine pH Ur Specific [place] Urine Protein Urine Glucose (UA) Urine Ketones Urine Occult Blood Urine Nitrate Urine Bilirubin Urine Urobilinogen Ur Leukocyte Esterase Urine RBC Urine WBC Ur Squamous Epith Cells Urine Bacteria Ur Culture Indicated? U Opiates 300ng/mL cut Ur Oxycodone Screen Urine Methadone Screen Ur Barbiturates Screen U Tricyclic Antidepress Ur Phencyclidine Scrn Ur Amphetamines Screen U Methamphetamines Scrn Ur MDMA Scrn (Ecstasy) U Benzodiazepines Scrn Urine Cocaine Screen U Marijuana (THC) Screen SARS-CoV-2 (PCR) 11/04/21 11/04/21 11/04/21 15:40 17:17 19:15 WBC RBC Hgb Hct MCV MCH MCHC RDW Plt Count Neut % (Auto) Lymph % (Auto) [place] % (Auto) Eos % (Auto) Baso % (Auto) Neut # (Auto) Lymph # (Auto) [place] # (Auto) Eos # (Auto) Baso # (Auto) PT INR APTT D-Dimer Sodium Potassium Chloride Carbon Dioxide BUN Creatinine Estimated GFR BUN/Creatinine Ratio Glucose Hemoglobin A1c Calcium Phosphorus Magnesium Total Bilirubin AST ALT Alkaline Phosphatase Total Creatine Kinase CK-MB (CK-2) CK-MB (CK-2) Rel Index Troponin I Total Protein Albumin Globulin Albumin/Globulin Ratio Triglycerides Cholesterol LDL Cholesterol, Calc HDL Cholesterol Lipase Vitamin B12 TSH Urine Color Yellow Urine Appearance Clear Urine pH 5.5 Ur Specific [place] 1.020 Urine Protein Negative Urine Glucose (UA) 2+ H Urine Ketones 1+ H Urine Occult Blood Negative Urine Nitrate Negative Urine Bilirubin Negative Urine Urobilinogen 0.2 Ur Leukocyte Esterase Negative Urine RBC None seen Urine WBC None seen Ur Squamous Epith Cells 5-10 /hpf H Urine Bacteria None seen Ur Culture Indicated? Cult not indicated U Opiates 300ng/mL cut Ur Oxycodone Screen Urine Methadone Screen Ur Barbiturates Screen U Tricyclic Antidepress Ur Phencyclidine Scrn Ur Amphetamines Screen U Methamphetamines Scrn Ur MDMA Scrn (Ecstasy) U Benzodiazepines Scrn Urine Cocaine Screen U Marijuana (THC) Screen SARS-CoV-2 (PCR) Negative Negative 11/04/21 11/04/21 11/04/21 19:15 19:36 19:36 WBC RBC Hgb Hct MCV MCH MCHC RDW Plt Count Neut % (Auto) Lymph % (Auto) [place] % (Auto) Eos % (Auto) Baso % (Auto) Neut # (Auto) Lymph # (Auto) [place] # (Auto) Eos # (Auto) Baso # (Auto) PT INR APTT D-Dimer Sodium Potassium Chloride Carbon Dioxide BUN Creatinine Estimated GFR BUN/Creatinine Ratio Glucose Hemoglobin A1c 8.9 H Calcium Phosphorus Magnesium Total Bilirubin AST ALT Alkaline Phosphatase Total Creatine Kinase 50 CK-MB (CK-2) TNP CK-MB (CK-2) Rel Index TNP Troponin I < 0.012 Total Protein Albumin Globulin Albumin/Globulin Ratio Triglycerides Cholesterol LDL Cholesterol, Calc HDL Cholesterol Lipase Vitamin B12 TSH Urine Color Urine Appearance Urine pH Ur Specific [place] Urine Protein Urine Glucose (UA) Urine Ketones Urine Occult Blood Urine Nitrate Urine Bilirubin Urine Urobilinogen Ur Leukocyte Esterase Urine RBC Urine WBC Ur Squamous Epith Cells Urine Bacteria Ur Culture Indicated? U Opiates 300ng/mL cut Negative Ur Oxycodone Screen Negative Urine Methadone Screen Negative Ur Barbiturates Screen Negative U Tricyclic Antidepress Negative Ur Phencyclidine Scrn Negative Ur Amphetamines Screen Negative U Methamphetamines Scrn Negative Ur MDMA Scrn (Ecstasy) Negative U Benzodiazepines Scrn Negative Urine Cocaine Screen Negative U Marijuana (THC) Screen Positive H SARS-CoV-2 (PCR) 11/04/21 11/04/21 11/05/21 19:36 22:14 06:25 WBC 4.8 RBC 5.01 Hgb 14.6 Hct 43.4 MCV 86.7 MCH 29.2 MCHC 33.7 RDW 13.8 Plt Count 145 L Neut % (Auto) 45.7 L Lymph % (Auto) 42.7 H [place] % (Auto) 8.0 Eos % (Auto) 2.4 Baso % (Auto) 1.2 Neut # (Auto) 2200 Lymph # (Auto) 2000 [place] # (Auto) 400 Eos # (Auto) 100 Baso # (Auto) 100 PT INR APTT D-Dimer Sodium 139 Potassium 4.2 Chloride 104 Carbon Dioxide 28 BUN 15 Creatinine 0.65 Estimated GFR > 60.0 BUN/Creatinine Ratio 23.1 H Glucose 160 H Hemoglobin A1c Calcium 9.8 Phosphorus Magnesium Total Bilirubin 0.4 AST 71 H ALT 47 H Alkaline Phosphatase 56 Total Creatine Kinase CK-MB (CK-2) CK-MB (CK-2) Rel Index Troponin I < 0.012 Total Protein 7.5 Albumin 4.5 Globulin 3.0 Albumin/Globulin Ratio 1.5 Triglycerides Cholesterol LDL Cholesterol, Calc HDL Cholesterol Lipase Vitamin B12 TSH Urine Color Urine Appearance Urine pH Ur Specific [place] Urine Protein Urine Glucose (UA) Urine Ketones Urine Occult Blood Urine Nitrate Urine Bilirubin Urine Urobilinogen Ur Leukocyte Esterase Urine RBC Urine WBC Ur Squamous Epith Cells Urine Bacteria Ur Culture Indicated? U Opiates 300ng/mL cut Ur Oxycodone Screen Urine Methadone Screen Ur Barbiturates Screen U Tricyclic Antidepress Ur Phencyclidine Scrn Ur Amphetamines Screen U Methamphetamines Scrn Ur MDMA Scrn (Ecstasy) U Benzodiazepines Scrn Urine Cocaine Screen U Marijuana (THC) Screen SARS-CoV-2 (PCR) 11/05/21 11/05/21 06:25 06:25 WBC RBC Hgb Hct MCV MCH MCHC RDW Plt Count Neut % (Auto) Lymph % (Auto) [place] % (Auto) Eos % (Auto) Baso % (Auto) Neut # (Auto) Lymph # (Auto) [place] # (Auto) Eos # (Auto) Baso # (Auto) PT INR APTT D-Dimer Sodium 137 Potassium 4.0 Chloride 100 Carbon Dioxide 30 BUN 14 Creatinine 0.64 Estimated GFR > 60.0 BUN/Creatinine Ratio 21.9 Glucose 208 H Hemoglobin A1c Calcium 9.1 Phosphorus 4.0 Magnesium Total Bilirubin 0.5 AST 40 H ALT 39 H Alkaline Phosphatase 46 Total Creatine Kinase CK-MB (CK-2) CK-MB (CK-2) Rel Index Troponin I < 0.012 Total Protein 6.5 Albumin 4.0 Globulin 2.5 Albumin/Globulin Ratio 1.6 Triglycerides Cholesterol LDL Cholesterol, Calc HDL Cholesterol Lipase Vitamin B12 TSH Urine Color Urine Appearance Urine pH Ur Specific [place] Urine Protein Urine Glucose (UA) Urine Ketones Urine Occult Blood Urine Nitrate Urine Bilirubin Urine Urobilinogen Ur Leukocyte Esterase Urine RBC Urine WBC Ur Squamous Epith Cells Urine Bacteria Ur Culture Indicated? U Opiates 300ng/mL cut Ur Oxycodone Screen Urine Methadone Screen Ur Barbiturates Screen U Tricyclic Antidepress Ur Phencyclidine Scrn Ur Amphetamines Screen U Methamphetamines Scrn Ur MDMA Scrn (Ecstasy) U Benzodiazepines Scrn Urine Cocaine Screen U Marijuana (THC) Screen SARS-CoV-2 (PCR) [facility] Medical History (Updated 11/04/21 @ 19:13 by Jacques Alexis MD) Coronary artery disease Diabetic neuropathy Fibromyalgia IDDM (insulin dependent diabetes mellitus) Myocardial infarction Syncope Social History household members: spouse, children and other Smoking Status: Former smoker alcohol intake: current Assessment & Plan Assessment & Plan narrative: This is a 61-year-old female with repeated episodes of spontaneous onset short lasting syncope without any identified etiologic pattern. Witnessed syncope in her room on 11/05 during PT. This lasted just seconds. -while standing up she became presyncopal, warned the therapist and then sat down and fainted in her bed. -her blood pressure while standing was not low. 154/78 with a pulse of 89. -her brain MRI had just been done and came back without any signs of stroke or tumor. She had received lorazepam for the MRI an hour or 2 before. -there was no telemetry abnormality during this time. She did not test hypoglycemic. -she was not postictal and had no loss of bowel or bladder control. -possible migraine, possible occult seizure, possible non physiologic anxiety related event? -echocardiogram reading is pending -EEG not available in house ?DIABETES TYPE 2-continue metformin and Jardiance ?MORBID OBESITY ?POSSIBLE ANXIETY per HISTORY-continue alprazolam/lorazepam as needed ?ELEVATED LIVER ENZYMES.? PATIENT IS ON STATIN. Mildly elevated ?LOWER EXTREMITY WEAKNESS.? CAUSE IS UNCLEAR -the brain MRI does not show any obvious etiology. -continue neuro checks and telemetry -continue PHYSICAL THERAPY AND OCCUPATIONAL THERAPY TEAMS WHILE IN-HOUSE ?ADDITIONAL MANAGEMENT AND? DISCHARGE PER CLINICAL COURSE Time Spent With Patient Critical Care time: I spent a total of [] minutes of critical care time on this patient's care today; this time is exclusive of procedural time. Quality VTE Deep Vein Thrombosis/Pulmonary Embolism Present on Admission: No
[2021-11-05 08:00] VITALS: BP 125/86; PULSE 69; RESP 19; TEMP 36.1; O2SAT 93
--- NOTE | 2021-11-05 08:58 | DI.MRI.S_ITS ---
PROCEDURE: MR STROKE Pre- and post-contrast brain MRI, non-contrast brain MR angiogram, pre- and postcontrast neck MR angiogram INDICATIONS: Syncope TECHNIQUE: Brain: Noncontrast axial T1 spin echo, axial T2 fast spin echo, sagittal and axial FLAIR, coronal T2 fast spin echo, axial gradient echo, axial diffusion and ADC through the brain. After the administration of contrast, axial 3D VIBE of the cranial vasculature and brain. Brain MRA: Non-contrast 3-D time of flight MR angiogram, with multiple kgebwua-lpwhzkjmg-zxvrxzhhew (MIP) reformats performed. Neck MRA: Axial and sagittal TruFISP through the neck. Coronal dynamic MR angiogram during administration of contrast in the arterial and venous phases, with 3-dimenstional ycmaljm-zklrpzuuo-jmqxxvzqep (MIP) reformats constructed from subtraction images. COMPARISON: [facility], CT, CT HEAD/BRAIN WO CON, 11/04/2021, 16:01. [facility], MR, MR HEAD/BRAIN WO CON, 11/04/2021, 17:26. FINDINGS: Image quality: Excellent. BRAIN: CSF spaces: Ventricles are normal in size and shape. Basal cisterns are patent. No extra-axial fluid collections. Brain: No intracranial bleeds or mass effects. Scattered foci of T2/FLAIR hyperintensity likely representing cycle of microvascular ischemic changes not significantly greater than expected for patient's age. Silver-white matter interface is normal. Diffusion weighted images show no acute ischemic insults. Brainstem appears normal. Normal intravascular flow voids are present. No abnormal intracranial enhancement. Skull and face: Calvarial marrow signal is normal. Orbits appear normal. Sinuses: Sinuses and mastoids are clear. BRAIN MR ANGIOGRAM: Anterior circulation: Intracranial internal carotid arteries are normal in size and enhancement. The flow within the paired anterior cerebral arteries is normal and symmetric. The flow within the middle cerebral arteries is normal and symmetric. The anterior communicating artery is seen. No stenoses, occlusions, or aneurysms. Posterior circulation: The visualized portions of the vertebral arteries demonstrate normal caliber, and join to form a normal appearing basilar artery. The flow within the posterior cerebral arteries is normal and symmetric. No stenoses, occlusions, or aneurysms. NECK MR ANGIOGRAM: Carotids: Great vessels demonstrate a conventional anatomy as they arise from the aortic arch. Questionable stenosis at the origins of the proximal carotid arteries is favored to be due to loss of signal. No significant stenosis or occlusion identified. The calibers and courses of both common carotid arteries are normal. The bifurcation regions appear normal bilaterally. The internal carotid arteries demonstrate normal course and caliber. Posterior circulation: The origins of the vertebral arteries appear patent. More superior portions of both vertebral arteries demonstrate normal course and caliber, and join to form a normal appearing basilar artery. Miscellaneous: Subclavian arteries appear patent. Right thyroid lobe nodule measuring up to 2.9 cm. Degenerative changes of the cervical spine worse at C4-C5. IMPRESSION: BRAIN MRI: A few foci of T2/FLAIR hyperintensity most consistent with microvascular ischemic changes, not more than expected for patient's age. No evidence of acute ischemia. BRAIN MR ANGIOGRAM: No evidence of significant stenosis or occlusion. NECK MR ANGIOGRAM: No evidence of significant stenosis or occlusion. Right thyroid lobe nodule measuring up to 2.9 cm. Recommend further evaluation with ultrasound. Dictated by: Yves Pereira D.O. on 11/05/2021 at 10:00 Approved by: Yves Pereira D.O. on 11/05/2021 at 10:11
[2021-11-05] MEDS: ALPRAZolam 0.5 MG TABLET PO (08:59)
[2021-11-05] MEDS: METFORMIN HCL 500 MG TABLET 1000 MG PO ×2 (09:00→18:04)
[2021-11-05] MEDS: ACETAMINOPHEN 325 MG TABLET 650 MG PO (09:00)
[2021-11-05] MEDS: lisinopriL 20 MG TABLET PO (09:00)
[2021-11-05] MEDS: LORazepam 0.5 MG TABLET PO (09:17)
--- NOTE | 2021-11-05 09:43 | PC.NURSE ---
Day shift: Pt off unit at approx 0940 for MRI.
--- NOTE | 2021-11-05 10:37 | PC.NURSE ---
Day shift: Pt back on unit from MRI. Placed back on tele and ICU aware.
--- NOTE | 2021-11-05 11:55 | PC.NURSE ---
Day shift: Pt had symcopal episode today at approx 1130. Pt was working w/ PT (getting orthostatic VS) and Pt stated she didn't feel right and fainted/passed out while on the bed. She woke up approx 10 seconds later tearful anxious. Dr Lewis in room and was given report by PT. Pt given 1mg IV Ativan for anxiety and this was ok's with Dr Lewis. Pt in bed, supine, and comfortable at this time. Pt also states that she needs to void. She states that bed trevino and BSC will not work and she also said she will refuse a Gilliam at this time. She states that her spouse can help her into the bathroom. Call light in reach. Also refused the 1 unit of insulin for BG of 164 at this time.
--- NOTE | 2021-11-05 11:59 | PT.IIE ---
Medical History (Last Updated 11/04/21 @ 15:58 by Jacques Alexis MD) Coronary artery disease Diabetic neuropathy Fibromyalgia IDDM (insulin dependent diabetes mellitus) Myocardial infarction Syncope Physical Therapy Inpatient Evaluation/Re-Eval M1 PT/OT-IP Prior Functional Status Start: 11/05/21 08:15 Freq: Status: Active Protocol: Document 11/05/21 11:24 MB (Rec: 11/05/21 11:58 MB [id number]) Medical Review Prior Functional Status Medical History Reviewed Yes Diet/Fluid Consistency Regular Communication WNLs Mobility and Gait Falls and syncope over the last week, typically I Activities of Daily Living and IADL's As above Prior Functional Level (Other details) As above Social History Household Members spouse,children,other Living Arrangements House Number of Floors (Floors) One Floor Number of Stairs To Enter/Railing? No steps Home Environment Standard Height Toilet Employment Status Retired Additional Social History Comment No AD M2 PT-IP Current Condition Start: 11/05/21 08:15 Freq: Status: Active Protocol: Document 11/05/21 11:24 MB (Rec: 11/05/21 11:58 MB [id number]) Physical Therapy Current Condition Current Condition Evaluation Date 11/05/21 Treatment Diagnosis Syncope and falls Onset Date Over the past week M3 PT-IP Subjective Start: 11/05/21 08:15 Freq: Status: Active Protocol: Document 11/05/21 11:24 MB (Rec: 11/05/21 11:58 MB [id number]) Subjective Physical Therapy Visit Type Type Initial Evaluation Visit Start Time 11:24 Visit Stop Time 11:43 Total Visit Minutes 19 Number of TURNING MACHINE OPERATOR HELPER Visits 0 Physical Therapy Visit Comments Patient Comments Pt states that she needs to go to the bathroom Therapy Pain Assessment Pain When Pain Assessed Rest & mob Pain Present Pain Present Denied Pain M4 PT-IP Mobility and Gait Start: 11/05/21 08:15 Freq: Status: Active Protocol: Document 11/05/21 11:24 MB (Rec: 11/05/21 11:58 MB [id number]) PT-Bed Mobility Assessment Supine to Sit Supine to Sit Contact Guard Assistance,1 Person Assistance,Head of Bed Elevated,Bedrails Sit to Supine Sit to Supine Maximum Assistance,1 Person Assistance Scooting Scooting to Edge of Bed Contact Guard Assistance Scooting Up and Down in Bed Contact Guard Assistance PT-Transfer Assessment Sit to and From Stand Sit to and from Stand Minimal Assistance,1 Person Assistance,Use of Upper Extremities Equipment Transfer Assistive Device None Orthotic/Prosthetic Devices or Brace: No Comments Mobility Comments Once up, donned gait belt before initiating stepping and pt then states she is going to pass out and PT encourages her to sit back on bed and lie down to the left and ma A to help legs to the mattress. BP and HR in LUE: supine 109/66, 75; standing 154/75, 88 (pt is symptomatic standing up), standing 30 sec: 120/81, 88 and started to initiate gait and pt reports light-headed and moved back to supine. In supine, BP and HR in LUE 144/ 76, 92. Gait Assessment Comments Gait Comments Unable to take a step today before stating that she felt like she was going to pass out PT-Balance Assessment Sitting Balance and Reactions Static Sitting Balance Ability Fair Dynamic Sitting Balance Ability Fair Standing Balance and Reactions Static Standing Balance Ability Fair Dynamic Standing Balance Ability Poor Device Used UE support for sitting and PT min A for standing with support waist M5 PT-IP Objective Assessments Start: 11/05/21 08:15 Freq: Status: Active Protocol: Document 11/05/21 11:24 MB (Rec: 11/05/21 11:58 MB [id number]) Orientation Orientation/Cognition Level of Alertness Confusional State Orientation Name,Age,Birthday,Month,Date, Year,Place,Situation Language Function Ability Word Finding Difficulties Safety Awareness Decreased Safety Awareness Memory Description Short Term Impaired Comments Pt is pleasantly conversant about hometown in [place], trip to [place] in supine. She has trouble describing recent events but does state that she has had the syncopal episodes and one with foaming at the mouth yesterday. She reports baseline neuropathy in legs from DM and worsening left face, left UE and left LE numbness. She has a remote history of migraines per report. Gross Range of Motion Upper Extremity ROM Assessment Within Functional Limits Lower Extremity ROM Assessment Within Functional Limits Strength Upper Extremity Strength Assessment Within Functional Limits Lower Extremity Strength Assessment Within Functional Limits Comments Strength Comments Functionally observed only as PT priority was to assess orthostasis and then pt passed out for several seconds and lowered on the bed Coordination Assessment Assessment Coordination Comments Unable to assess today Sensation Assessment Comments Sensation Comments Unable to assess today M6 PT-IP Treatment Start: 11/05/21 08:15 Freq: Status: Active Protocol: Document 11/05/21 11:24 MB (Rec: 11/05/21 11:58 MB [id number]) Physical Therapy Treatment Education Education Provided Precautions,Safety M7 PT-IP Assessment and Plan Start: 11/05/21 08:15 Freq: Status: Active Protocol: Document 11/05/21 11:24 MB (Rec: 11/05/21 11:58 MB [id number]) PT Summary Assessment and Plan Potential Rehabilitation Potential Fair Status of Condition at Evaluation Unstable Summary Impairments Balance,Sensation,Cognition, Bed Mobility,Transfers,Gait, Activity Tolerance Assessment Summary Pt is a 61 y/o female with PMH CAD, [place], syncope, DM and diabetic neuropathy. She is pleasantly communicative in supine and is able to report some recent history and talk about traveling. Upon getting up for orthostatic testing, she is very symptomatic and then warns PT that she is going to pass out after about a minute of standing before PT and pt attempted to get to the BR. PT is able to get pt in the bed safely and nurse and doctor arrive. Her PT is volatile with a 34 systolic drop after standing up 30 sec to 1'. Con't PT efforts as pt stable to move. Goals Bed Mobility Goal Independent Transfer Goal Independent Gait Goal Independent Gait Distance 100 Days to Meet Goals 5 Frequency of Treatment Frequency Of Treatment Once a Day Treatment Plan Physical Therapy Treatment Plan Bed Mobility Training,Transfer Training,Gait Training, Therapeutic Exercise,Balance Retraining,Neuromuscular Re-ed Precautions Other Precautions Fall risk, volatile BP Recommendations To Nursing Amount of Assist Needed Mechanical Lift Discharge Recommendations Other Discharge Recommendations 24 hour care currently, cannot make clear disposition rec until she can tolerate getting up
[2021-11-05 12:08] VITALS: BP 141/76; PULSE 88; RESP 19; TEMP 36.4; O2SAT 93
--- NOTE | 2021-11-05 12:10 | OT.IPNOTE ---
Pt not appropriate for OT eval today as having syncopal episodes.
--- NOTE | 2021-11-05 15:56 | CM.DANOTE ---
DCP Assessment: Patient is a 61 yr old female who was admitted for multiple syncopal episodes and to R/O poss stroke. CM met with patient at the bedside and explained role. Patient was alert and oriented x4 during visit patients states she is independent at baseline and drives. Patient currently lives in [place] with her and there two adult children and there 3 and 4 yr old grandchildren. patient states that she has type two diabetes and would like to have an A1C done and would like to meet with the dietitian to learn more about how to it infrastructure manager her diabetes. CM let Dr Lewis know and requested the consult be placed for the diabetes education. patient expressed desire to go home today and CM explained that the doctor is doing a medical work up and most likely would not be done tonight. Patient stated understanding. I: [employer] and medicaid Plan: DC home with her when medically stable. no Identified DC planning needs at this time. CM will follow and assist with any new DC planning needs that may arise. Rehana Veliz RNguest services assistant
[2021-11-05 16:00] VITALS: BP 110/72; PULSE 90; RESP 19; TEMP 36.9; O2SAT 95
[2021-11-05 20:17] VITALS: BP 113/69; PULSE 90; RESP 18; TEMP 36.2; O2SAT 95
[2021-11-05] MEDS: ATORVASTATIN 20 MG TABLET PO (20:21)
[2021-11-05] MEDS: LORazepam 1 MG TABLET PO (20:21)
[2021-11-05] MEDS: SODIUM CHLORIDE 0.9% FLUSH 10 ML IV (20:22)
--- NOTE | 2021-11-05 22:40 | PC.NURSE ---
Addendum entered by Rosio Kaplan R.N. 11/06/21 06:49: Up to bathroom this morning (refuses to use bedpan or BSC) and ambulated with walker and 2 assist. Did complain of some dizziness but states that is chronic and denied any vertigo. Was steady on her feet. Complained of back pain and was medicated with Tylenol. Has slept most of shift. Complained of constipation and was medicated with Dulcolax tabs. Bed alarm activated as patient/spouse report she was up to bathroom earlier on shift with help of spouse and did not call for staff assistance. Addendum entered by Rosio Kaplan R.N. 11/06/21 06:48: Bed rezeroed and weight is down 2.5kg this morning. Uncertain why weight change so notified provider Chas IGNACIO. Original Note: Patient is alert and oriented but anxious. Wanting to go home yet states she doesn't want to discharge until the cause of her syncopal episodes is determined. Breath sounds diminished at bases but CTA with RA sat of 95%. HRR w/telemetry reading of SR. Does complain of chest discomfort but states it is chronic; requested/medicated with Ativan. Denied nausea. BT present and abdomen is soft. Has not yet been up to urinate but denies dysuria, frequency or urgency. Is able to move herself in bed. Gait not assessed at this time. Continues to have numbness in left arm/leg/face which she states is chronic but worsened prior to admit and has not improved since admission and feels she is experiencing more numbness in left foot. CBG was 194 but patient is refusing sliding scale coverage insulin. Wearing SCD to right LE only as refuses using on left LE related to numbess. Fall risk score is high but patient has been compliant with calling for staff assistance and both she and spouse verbalize agreement to call for staff help when needing to get out of bed.
[2021-11-06 00:20] VITALS: BP 116/79; PULSE 80; RESP 16; TEMP 36.4; O2SAT 95
[2021-11-06 04:23] VITALS: BP 113/75; PULSE 76; RESP 20; TEMP 36.4; O2SAT 97
[2021-11-06] MEDS: PANTOPRAZOLE DR 20 MG TABLET PO (06:26)
[2021-11-06] MEDS: ACETAMINOPHEN 325 MG TABLET 650 MG PO (06:40)
[2021-11-06] MEDS: BISACODYL 5 MG TABLET 10 MG PO (06:40)
[2021-11-06 06:53] LABS: Phosphorous 4.5 mg/dL (2.8-4.1)
[2021-11-06 07:24] LABS: Cortisol AM (Before 10AM) 5.04 ug/dL (4.46-22.7)
[2021-11-06 08:00] VITALS: BP 123/85; PULSE 75; RESP 19; TEMP 35.9; O2SAT 97
[2021-11-06] MEDS: SODIUM CHLORIDE 0.9% FLUSH 10 ML IV ×2 (09:51→21:37)
[2021-11-06] MEDS: ALPRAZolam 0.5 MG TABLET PO (09:53)
[2021-11-06] MEDS: METFORMIN HCL 500 MG TABLET 1000 MG PO ×2 (09:53→18:12)
[2021-11-06] MEDS: lisinopriL 20 MG TABLET PO (09:53)
--- NOTE | 2021-11-06 10:44 | DI.CT.S_ITS ---
PROCEDURE: CT STROKE INDICATIONS: r/o TIA, headache TECHNIQUE: Noncontrast 4.5 mm thick angled axial sections acquired from the foramen magnum to the vertex, with coronal reformats. For radiation dose reduction, the following was used: automated exposure control, adjustment of mA and/or kV according to patient size. COMPARISON: [facility], CT, CT HEAD/BRAIN WO CON, 11/04/2021, 16:01. [facility], MR, MR HEAD/BRAIN WO CON, 11/04/2021, 17:26. FINDINGS: Image quality: Excellent. CSF spaces: Basal cisterns are patent. No extra-axial fluid collections. Ventricles are normal in size and shape. Brain: No midline shift. No intracranial masses or hemorrhage. Silver-white matter interface is normal. Skull and face: Calvarium and visualized facial bones are intact, without suspicious lesions. Sinuses: Visualized sinuses and mastoids are clear. IMPRESSION: Stable head CT from 11/05/2021 comparison. No acute intracranial abnormality. This study fulfills neurological imaging criteria for inclusion or exclusion of acute stroke therapies based on available published neurological imaging guidelines. Dictated by: Yves Pereira D.O. on 11/06/2021 at 10:08 Approved by: Yves Pereira D.O. on 11/06/2021 at 10:18
--- NOTE | 2021-11-06 10:59 | PC.NURSE ---
Day shift: Pt off unit for CT at approx 1100. Taken down in bed by BENITEZ Us and LILIANA Villagomez.
--- NOTE | 2021-11-06 11:01 | PC.NURSE ---
Day shift: Code stroke called today at approx 1020. Dr Rodriguez in room and assessed Pt at approx 1025. He VS WNL but BP was elevated. BG 158. Pt also tearful at this time and presented with left sided facial droop and numbness reported by Pt. Dr Rodriguez orderd stat CT. When Dr Rodriguez and this conventional underwriter in room with Pt and her spouse Dr Rodriguez stated that Pt would need to stay another day in the hospital Pt passed out/fainted again in bed. Another set of VS taken and they were WNL but BP was approx 145/90. Nueros checked by Dr Rodriguez and left Approx 15 minutes prior to code stroke the following occurred and Dr Rodriguez informed. Pt had another syncopal episode on return from bathroom. When getting up off toilet Pt became very weak and was placed in chair for 5 minutes and chair moved to bedside and Pt back in bed safely. VS checked and they were WNL but BP was elevated. Pt back on AC unit at approx [address]
--- NOTE | 2021-11-06 11:05 | DI.MRI.S_ITS ---
PROCEDURE: MR HEAD/BRAIN WO CON INDICATIONS: new lt facial droop TECHNIQUE: Noncontrast axial T1 spin echo, axial T2 fast spin echo, sagittal and axial FLAIR, coronal T2 fast spin echo, axial gradient echo, axial diffusion and ADC through the brain. COMPARISON: [facility], CT, CT HEAD/BRAIN WO CON, 11/04/2021, 16:01. [facility], MR, MR STROKE, 11/05/2021, 9:46. [facility], CT, CT STROKE, 11/06/2021, 11:00. [facility], MR, MR HEAD/BRAIN WO CON, 11/04/2021, 17:26. FINDINGS: Image quality: Significantly limited given diffuse patient motion.. CSF Spaces: Basal cisterns are patent. No extra-axial fluid collections. Ventricles are normal in size and shape. Brain: No intracranial masses or hemorrhage. Silver/white matter interface is normal. Brainstem appears normal. Diffusion-weighted images demonstrate no acute ischemic insult. No chronic ischemic insults. Normal intravascular flow voids are present. Skull and face: Calvarium has normal marrow signal. Orbits appear normal. Sinuses: Sinuses and mastoids are clear. IMPRESSION: Unremarkable brain MRI for patient's age within limitations of significant patient motion. Dictated by: Yves Pereira D.O. on 11/06/2021 at 13:08 Approved by: Yves Pereira D.O. on 11/06/2021 at 13:10
--- NOTE | 2021-11-06 11:32 | PT-IP ANOTE ---
Spoke to RN. Told to hold PT treatment today for medical.
[2021-11-06 11:46] VITALS: BP 142/82; PULSE 81; RESP 14; TEMP 36.4; O2SAT 97
[2021-11-06 12:07] LABS: Homocysteine 9.1 umol/L (0.0-17.2)
[2021-11-06] MEDS: LORazepam 0.5 MG TABLET PO (12:39)
--- NOTE | 2021-11-06 13:17 | PC.NURSE ---
Day shift: Pt off unit for MRI at approx 1310. Off tele at this time as well.
--- NOTE | 2021-11-06 13:50 | PC.NURSE ---
Day shift: Pt back on AC unit from MRI at approx 1340. She had another syncopal episode similar to her previous episodes when transferring from to bed. Tearful with anxiety. VS taken and all WNL. Back on tele and NSR per SIGNAL TOWER OPERATOR. Supine in bed and she is feeling better as this is written. Pt in now asleep (1400). Pt reports her feeling is back on her left face. No left side facial droop seen as well. Call light in reach and bed alarm is on.
[2021-11-06 16:00] VITALS: BP 117/70; PULSE 83; RESP 19; TEMP 35.9; O2SAT 97
--- NOTE | 2021-11-06 18:34 | P.PN_ITS ---
Subjective Subjective Date Patient Seen: 11/06/21 Interval history: 61-year-old female admitted with recurrent syncope. She had a couple of dramatic episodes today after was helped to bathroom by staff and then blacked out once she got helped back to bed. Vitals were normal and she was not orthostatic. She actually had another episode while I was talking to her and she was lying in bed. She was quite emotional before during and after the event. No clear seizure type activity. There seems to be a anxiety/stress precipitant. Furthermore gives history that she has had syncope episodes periodically over the past 3 years but accelerated over the past week associated with acute stress from family living in their house. Patient denies history of seizures. She endorses significant depression and anxiety which is chronic and untreated. She was however noted to have a new mild left facial droop after 1 of these episodes concerning for TIA. She also has chronic peripheral neuropathy which patient states affects her left side more than the right with chronic weakness in the left upper and left lower extremities. 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 Neurological exam was not revealing for CVA. Stat head CT negative. Repeat brain MRI negative for acute CVA. Exam Vital Signs (past 8 hours): - 11/06/21 11:46 11/06/21 16:00 Temperature 97.6 F 96.6 F L Pulse Rate 81 83 Respiratory Rate 14 19 Blood Pressure 142/82 H 117/70 Pulse Oximetry 97 97 Oxygen Delivery Method Room Air Oxygen Flow Rate 0 Narrative Exam Narrative: General: Very emotionally distressed female with diminished affect HEENT: Pupils equal and reactive to light, EOMI, there is a slight left facial droop Lungs: Clear Heart: Regular rhythm Extremities: No edema Neurological: Depressed and anxious affect, left facial droop, left arm weakness still possibly limited by shoulder, left leg weakness, [id number] intact Objective Labs Result Diagrams: 11/05/21 06:25 11/05/21 06:25 Labs: Laboratory Results - last 24 hr 11/04/21 11/06/21 11/06/21 19:36 06:24 06:24 Phosphorus 4.5 H Homocysteine 9.1 Cortisol AM Sample 5.04 [facility] Medical History (Updated 11/04/21 @ 19:13 by Jacques Alexis MD) Coronary artery disease Diabetic neuropathy Fibromyalgia IDDM (insulin dependent diabetes mellitus) Myocardial infarction Syncope Social History household members: spouse, children and other Smoking Status: Former smoker alcohol intake: current Assessment & Plan Assessment & Plan narrative: 1. Recurrent witnessed syncope -etiology undetermined but appears more psychiatric or pseudoseizures than physiologic -has not been postictal or had loss of bowel or bladder control after events -echo is normal -Brain MRI negative x2 -telemetry normal and not orthostatic -consider outpatient neurology workup 2. Chronic depression and anxiety -start Lexapro 10 mg q.d. 3. Chronic left upper and lower extremity weakness -continue PT 4. Type 2 diabetes -continue oral meds 5. Hypertension -continue lisinopril 6. Possible acute TIA -patient observed to have mild left facial droop on 11/[address] and MRI -neuro check Q shift Patient will continue in observation 1 more night. Time Spent With Patient Critical Care time: I spent a total of [] minutes of critical care time on this patient's care today; this time is exclusive of procedural time. Quality VTE Deep Vein Thrombosis/Pulmonary Embolism Present on Admission: No
--- NOTE | 2021-11-06 18:57 | PC.NURSE ---
Day shift: Per Pt (LILIANA Villagomez in room as well as this health technical writer) Pt said I will take responsibility and my also for getting out of bed and going into the bathroom with out any help from you.
--- NOTE | 2021-11-06 19:01 | PC.NURSE ---
per pt refused to let us help with commode. pt said her would take full responsibility.
[2021-11-06 19:53] VITALS: BP 111/64; PULSE 85; RESP 16; TEMP 35.9; O2SAT 97
--- NOTE | 2021-11-06 20:06 | PC.NURSE ---
Pt refusing bed alarm, beside commode, bedpan, and staff assistance with mobilization. Pt educated on fall risk status as well as the dangers of falling. Pt verbalized understanding and confirmed wishes to not utilize available resources. Pt states my will help me, he's used to it. He can carry me. This RN verbalized that a note would be made in the chart, pt verbalized understanding. Per BENITEZ Liang, pt reported that the prior shift had let her fall. Per all reports, pt was assisted to chair and did not truly fall.
--- NOTE | 2021-11-06 20:37 | PC.NURSE ---
2000: checked on patient, white board updated w/ assignment for the NOC. VS obtained. patient is a/o, able to voice needs. Max is at bedside, and will be rooming in. per day shift report: patient and wanted to decline ADL/transfer/mobility assistance this evening/night due to patient's syncopal episodes and 3PA status on todays day shift. Asked the patient if she needed assist w/ ADLs or toileting. she declined by stating: i do not need assistance that is correct, my can manage. As for earlier, they dropped me and we dont want to do that again. instructed patient to call for assistance as needed thru the NOC. She requested hot tea and ice water. this was brought to her room, and this RN ensured her call light w/in reach. above info reported to her nurse
[2021-11-06] MEDS: ATORVASTATIN 20 MG TABLET PO (21:37)
[2021-11-07] VITALS: BP 100/50; PULSE 85; RESP 16; TEMP 36.1; O2SAT 96
[2021-11-07] MEDS: ALPRAZolam 0.5 MG TABLET PO ×2 (00:25→08:50)
[2021-11-07 03:42] VITALS: BP 102/47; PULSE 83; RESP 16; TEMP 35.9; O2SAT 98
[2021-11-07] MEDS: PANTOPRAZOLE DR 20 MG TABLET PO (06:31)
[2021-11-07 08:00] VITALS: BP 137/73; PULSE 84; RESP 16; TEMP 36.2; O2SAT 97
[2021-11-07] MEDS: COSYNTROPIN 0.25 MG VIAL IV (08:10)
[2021-11-07] MEDS: ACETAMINOPHEN 325 MG TABLET 650 MG PO (08:42)
[2021-11-07] MEDS: METFORMIN HCL 500 MG TABLET 1000 MG PO (08:42)
[2021-11-07] MEDS: ESCITALOPRAM 10 MG TABLET PO (08:43)
[2021-11-07 08:50] VITALS: BP 137/73; PULSE 82
[2021-11-07 08:50] LABS: Phosphorous 4.7 mg/dL (2.8-4.1)
[2021-11-07] MEDS: lisinopriL 20 MG TABLET PO (08:50)
[2021-11-07] MEDS: SODIUM CHLORIDE 0.9% FLUSH 10 ML IV (08:51)
[2021-11-07 09:42] LABS: Cortisol 30 MIN Post Stim. 19.7 ug/dL
[2021-11-07 09:43] LABS: Cortisol Basline for Stim. 9.28 ug/dL
[2021-11-07 10:23] LABS: Cortisol 60 MIN Post Stim. 23.3 ug/dL
--- NOTE | 2021-11-07 11:48 | PM.DS.1 ---
History of Present Illness History of Present Illness Chief complaint: Falling; possible seizure, RO stroke Narrative: THIS IS A 62-YEAR-OLD FEMALE WITH REPORTEDLY HISTORY OF PRIOR [place] WHICH WAS SUPPOSEDLY DIAGNOSED IN 2019. ? HOWEVER PATIENT HAD A LEFT HEART CATHETERIZATION WHICH SHOWING CLEAN CORONARY REPORTEDLY. ? PATIENT PRESENTS TO THE HOSPITAL REPORTING THAT SHE HAS BEEN HAVING RECURRENT SYNCOPAL EPISODE.? WITH THE LAST REPORTED BEING DURING TRIAGED TODAY. ? FOR THE LAST? 2-3 WEEKS AGO, SHE REPORTED TO 2- 3 EPISODE OR SYNCOPE.? SHE ALSO REPORTED CHEST PALPITATION WITH ? HER HEART A BEAT ? SHE IS A POOR HISTORIAN AND? REPORTED ? MULTIPLE ? UNRELATED SYMPTOMS? . ? PATIENT ALSO ? ENDORSES? THAT SHE HAS BEEN HAVING SOME NUMBNESS TO LOWER EXTREMITIES WHICH SHE HAS DIFFERENT FROM HER USUAL DIABETIC NEUROPATHY. ?HER RIGHT SIDE BEING THE WORST ?? IN THE ER HOWEVER HER VITAL SIGNS ARE FAIRLY STABLE. ? LABS IS SIGNIFICANT FOR APPEARS TO BE? MILD HEMOCONCENTRATION SECONDARY TO? INTRAVASCULAR FLUID DEPLETION WELL ELEVATED LIVER ENZYMES. ? A CT OF THE BRAIN WAS NEGATIVE ?A CHEST X-RAY NOT SHOW ANY ACUTE DISEASE. Discharge Providers Provider Date of admission: 11/04/21 16:57 Discharge Date: 11/07/21 Primary care physician: Chen Bojorquez MD Consults: 11/04/21 17:03 Consult to Discharge Planning Routine Comment: Consult to Occupational Therapy Evaluate & Treat Comment: Physician Instructions: Evaluate and treat Consult to Physical Therapy Evaluate & Treat Comment: Physician Instructions: Evaluate and Treat 11/07/21 09:08 Consult to Dietitian, Adult Routine Comment: Reason For Exam: Diabetic Teaching Discharge provider: Vish Rodriguez MD Summary Hospital Course Discharge Diagnosis: 1. Recurrent syncope 2. Possible acute TIA occurring in hospital 3. Chronic depression and anxiety 4. Chronic left upper and lower extremity weakness 5. Type 2 diabetes with neuropathy 6. Essential hypertension 61-year-old female admitted with recurrent syncope.? She had a couple of dramatic episodes in-hospital after was helped to bathroom by staff and then blacked out once she got helped back to bed.? Vitals were normal and she was not orthostatic.? She actually had another episode while I was talking to her and she was lying in bed.? She was quite emotional before during and after the event.? No seizure type activity or postictal symptoms of tongue biting, loss of urinary or bowel incontinence. There seems to be a significant anxiety/stress precipitant.? Furthermore gives history that she has had syncope episodes periodically over the past 3 years but accelerated over the past week associated with acute stress from family living in their house.? Patient denies history of seizures.? She endorses significant depression and anxiety which is chronic and untreated. She was however noted to have a new mild left facial droop on 11/07 after 1 of these episodes which raised question of acute TIA.? She also has chronic peripheral neuropathy which patient states affects her left side more than the right with chronic weakness in the left upper and left lower extremities.? 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 Neurological exam was not revealing for CVA.? Stat head CT negative.? Repeat brain MRI negative for acute CVA. So she has had 2 normal brain MRIs. Echo was also done which showed normal LVEF 60-65%, normal LV size and thickness, normal RV, no significant valvular disease. Due to possible acute TIA causing the mild reversible left facial droop patient was started on low-dose aspirin. I do not think this was in any way related to the recurrent syncope. The syncope seems highly associated with acute stress with chronic anxiety and depression. Presents almost as pseudoseizures. Cannot definitively rule out seizures and patient may wish to have outpatient Neurology consultation if these episodes continue with management of her depression and anxiety. We also ruled out adrenal insufficiency as cause of syncope. She had initial a.m. cortisol of 5 which is borderline low. Low-dose cosyntropin stim test was normal with initial cortisol of 9.28, 30 minute level of 19.7 and 60 minute level of 23.3 showing appropriate response. Patient agreeable to starting on escitalopram. She needs to establish with PCP. Also sees Dr. Bojorquez for cardiology due to past history of [place] although reportedly left heart catheterization was normal. Status at Discharge Cognitive/behavioral status at discharge: oriented Functional status at discharge: independent ambulation Overall status at discharge: patient is back to baseline Time Spent with Patient Time spent: Greater than 30 minutes Exam Vital Signs (past 8 hours): - 11/07/21 08:00 11/07/21 08:50 Temperature 97.2 F L Pulse Rate 84 82 Respiratory Rate 16 Blood Pressure 137/73 137/73 Pulse Oximetry 97 Oxygen Delivery Method Room Air Oxygen Flow Rate 0 Objective Labs Result Diagrams: 11/05/21 06:25 11/05/21 06:25 Labs: Laboratory Results - last 24 hr 11/04/21 11/07/21 11/07/21 19:36 08:00 08:00 Phosphorus 4.7 H Homocysteine 9.1 Cortisol Response [facility] Medical History (Updated 11/04/21 @ 19:13 by Jacques Alexis MD) Coronary artery disease Diabetic neuropathy Fibromyalgia IDDM (insulin dependent diabetes mellitus) Myocardial infarction Syncope Social History household members: spouse, children and other Smoking Status: Former smoker alcohol intake: current Discharge Plan Discharge Plan Patient Disposition: Home Provider Discharge Comment: Please establish with PCP to follow up on hospitalization and future medication refills. Discharge orders & Medications Prescriptions: New aspirin 81 mg tablet,delayed release (DR/EC) 81 mg PO DAILY Qty: 30 0RF escitalopram oxalate 10 mg tablet 10 mg PO DAILY Qty: 30 0RF Continued metformin 500 mg tablet 1,000 mg PO BID Qty: 120 0RF omeprazole 20 mg capsule,delayed release(DR/EC) 20 mg PO DAILY Qty: 30 0RF rosuvastatin 10 mg tablet 10 mg PO DAILY Qty: 30 0RF Label Comments: TAKE 1 TABLET BY MOUTH ONCE DAILY Jardiance 10 mg tablet 10 mg PO DAILY Qty: 30 0RF lisinopril 20 mg tablet 20 mg PO DAILY Qty: 30 0RF alprazolam 0.5 mg 0.5 mg PO DAILY PRN (Reason: Anxiety) Qty: 30 0RF Discontinued alprazolam 0.5 mg Tablet 0.5 mg PO DAILY PRN (Reason: Anxiety) 0RF Rx Instructions: take 0.5 mg (1 tab) PRN daily for anxiety. May take additional 0.5 mg (1 tab) for anxiety but maximum dose in 24 hrs/day not to exceed 1 mg (2 tabs) total Follow up/Referrals: Chen Bojorquez MD [Primary Care Provider] - Visit Report/Discharge Packet Instructions: DI for Syncope in Adults (Fainting) Discharge Data Primary Care Provider: Chen Bojorquez Attending Provider: Artie Ochoa Quality VTE Deep Vein Thrombosis/Pulmonary Embolism Present on Admission: No
--- NOTE | 2021-11-07 11:51 | PT-IP ANOTE ---
Attempted to see pt at 11:50, pt refused PT stating she has no needs and is dressed and awaiting d/c.
--- NOTE | 2021-11-07 12:01 | OT.IPNOTE ---
Pt already discharged prior to OT seeing pt for OT eval.
--- NOTE | 2021-11-07 12:29 | CM.DPC ---
DCP Cont: Met with patient and spouse. She has discharge orders for home today. Introduced self and role. Asked her if she had a local provider, and she indicated, she does not. Went ahead and printed out [facility] resources, with phone number, and list of providers accepting new patients. Patient was appreciative of the information provided. P: Patient is discharging home today with no needs. Gave her primary care provider resources. Lindy Duke RN/[facility] Staff Member
--- NOTE | 2021-11-22 18:25 | PC.NURSE ---
Late entry; LR infusion initiated 11/04 at 2014, stopped by MD order 11/05 [id number].
[2021-12-08 11:14] LABS: RPR Screen REACTIVE
[2021-12-08 11:15] LABS: RPR Quant + RPR Abs NON REACTIVE
== END 2021-11-07 12:05 | disposition home or self-care (01) ==
LOC: ED 15:04 → AC 16:58
PROVIDERS: Nurse Practitioner Family; Admitting Provider Hospitalist; Emergency Provider Emergency Medicine; PCP Internal Medicine Cardiovascular Disease; Referring Provider Emergency Medicine; Visit Provider Hospitalist
DX: R55 Syncope and collapse (principal); R53.1 Weakness; R29.704 NIHSS score 4; I25.10 Atherosclerotic heart disease of native coronary artery without angina pectoris; I25.2 Old myocardial infarction; E11.42 Type 2 diabetes mellitus with diabetic polyneuropathy; Z79.84 Long term (current) use of oral hypoglycemic drugs; E66.01 Morbid (severe) obesity due to excess calories; R74.01 Elevation of levels of liver transaminase levels; F32.9 Major depressive disorder, single episode, unspecified; F41.9 Anxiety disorder, unspecified; I10 Essential (primary) hypertension; Z20.822 Contact with and (suspected) exposure to COVID-19
CPT/HCPCS: 36415; 70450; 70548; 70551; 70553; 71045; 80053; 80061; 80305; 81001; 82533; 82550; 82607; 82962; 83036; 83090; 83690; 83735; 84100; 84443; 84484; 85025; 85379; 85610; 85730; 86592; 87635; 93005; 93010; 93306; 96361; 96374; 96375; 97161; 99285; 99291; 99406; C9803; G0378; J0834; J1815; J2060